=== PATIENT | female | born 1975 | race African-American/Black ===

== ENCOUNTER 2019-03-10 13:59 | Emergency (ER) | payer SELFPAY ==
[2019-03-10 14:18] VITALS: BP 158/89
--- NOTE | 2019-03-10 15:34 | UC ---
FLU HPI - HPI Summary HPI Summary: 43 year old female with no PMH, no recent illnesses, no recent ABX, c/o b/l ear pain x 1 week, starting on R side, now b/l with mild throat irritation past 2-3 days. ? fever last night, tactile, none now. + faitgue, no GI symptoms, no body aches, no sinus pressure, MORALES, no neck pain. Works in assisted. - History of Current Complaint Chief Complaint: UCGeneralIllness Stated Complaint: SORE THROAT EAR PAIN Time Seen by Provider: 03/10/19 15:12 Hx Obtained From: Patient Hx Last Menstrual Period: 06/10/13 ?: No Onset/Duration: Sudden Onset Severity Currently: Moderate Severity Initially: Moderate Pain Intensity: 8 Pain Scale Used: 0-10 Numeric Associated Signs & Symptoms: Positive: Fever - tactile last night, F/C, Sore Throat. Negative: T Max, Myalgia, Cough, Nasal Congestion, Headache, Vomiting, Diarrhea Related Hx: Possible Flu/Infectious Exposure - Allergy/Home Medications Allergies/Adverse Reactions: Allergies Allergy/AdvReac Type Severity Reaction Status Date / Time No Known Allergies Allergy Verified 03/10/19 14:18 Home Medications: Home Medications Lisinopril [Zestril] 20 mg PO DAILY WITH MEAL 03/10/19 [History Confirmed ] PMH/Surg Hx/FS Hx/Imm Hx Previously Healthy: Yes - Surgical History Surgical History: Yes Surgery Procedure, Year, and Place: gastric bypass [facility] [place]. breast reduction [facility] [place]. [place] [facility] [place] - Family History Known Family History: Positive: Hypertension - Social History Alcohol Use: Weekly Alcohol Amount: A FEW BEERS ON WEEKENDS Substance Use Type: None Smoking Status (MU): Former Smoker Type: Cigarettes Amount Used/How Often: LESS THAN 1/2 PPD X 10 YEARS- OFF AND ON Have You Smoked in the Last Year: Yes - Immunization History Most Recent Influenza Vaccination: 08/2015 Most Recent Tetanus Shot: 2011 Most Recent Pneumonia Vaccination: NEVER Review of Systems All Other Systems Reviewed And Are Negative: Yes Constitutional: Positive: Fever, Fatigue ENT: Positive: Sore Throat, Ear Ache. Negative: Epistaxis, Dental Pain, Nasal Discharge, Sinus Congestion, Sinus Pain/Tenderness Respiratory: Negative: Shortness Of Breath, Cough Is Patient Immunocompromised?: No Physical Exam Triage Information Reviewed: Yes Appearance: Well-Appearing, No Pain Distress, Well-Nourished Vital Signs: Initial Vital Signs Temp 98.5 F 03/10/19 14:15 Pulse 72 03/10/19 14:15 Resp 18 03/10/19 14:15 BP 158/89 03/10/19 14:15 Pulse Ox 100 03/10/19 14:15 Vital Signs Reviewed: Yes Eyes: Positive: Conjunctiva Clear ENT: Positive: Pharyngeal erythema, TMs normal - fluid posterior to TM b/l, no swelling, no erythema/ irritation, Uvula midline. Negative: TM bulging, TM dull , Tonsillar swelling, Tonsillar exudate, Sinus tenderness Neck: Positive: Supple, Nontender, Enlarged Nodes @ - minimal < 1cm b/l, mobile Respiratory: Positive: Chest non-tender, Lungs clear, Normal breath sounds, No respiratory distress, No accessory muscle use. Negative: Crackles, Rhonchi, Stridor, Wheezing Cardiovascular: Positive: RRR Psychological Exam: Normal Skin Exam: Normal Flu Course/Dx - Course Course Of Treatment: Obey viral URI, continue conservative treatment, work note given. OTC for symptoms - Differential Dx/Diagnosis Differential Diagnosis/HQI/PQRI: Influenza, RSV, Upper Respiratory Infection Provider Diagnosis: Viral URI Discharge - Sign-Out/Discharge Documenting (check all that apply): Patient Departure All imaging exams completed and their final reports reviewed: No Studies - Discharge Plan Condition: Good Disposition: HOME Patient Education Materials: Upper Respiratory Infection (ED) Forms: *Work Release Referrals: Ernestina Myers MD [Primary Care Provider] - Additional Instructions: - Motrin/ tylenol as needed for pain, fever - Increase rest , Increase fluids - Work note as needed - Follow up with primary doctor within 2-3 days if no improvement - Go to ER with neck pain, Headache not relieved by motrin, tylenol, increased symptoms. - Billing Disposition and Condition Condition: GOOD Disposition: Home - Attestation Statements Provider Attestation: Patient not seen or examined by me. I was available for consult.
== END 2019-03-10 15:40 | disposition home or self-care (01) ==
LOC: UCEAST 13:59
DX: J06.9 Acute upper respiratory infection, unspecified (principal); B34.9 Viral infection, unspecified; Z87.891 Personal history of nicotine dependence
CPT/HCPCS: 99211; G0463